=== PATIENT | male | born 1945 | race Caucasian/White ===

== ENCOUNTER 2016-10-06 19:02 | Emergency (ER) | payer MEDICARE ==
[2016-10-06 20:14] VITALS: BP 166/82
--- NOTE | 2016-10-06 20:37 | EDM.PDOC ---
ED HPI GENERAL MEDICAL PROBLEM - General Chief Complaint: ENT Problem Stated Complaint: TOOTHACHE Time Seen by Provider: 10/06/16 20:20 Source of Information: Reports: Patient, Family History Limitations: Reports: No Limitations - History of Present Illness INITIAL COMMENTS - FREE TEXT/NARRATIVE: 71-year-old male with a right mandibular dental pain for the past several days, has an appointment with the dentist on Friday, 3 days from now was told to come in if pain was uncontrolled. No fever or swelling of the jaw. Onset: Gradual - Related Data Allergies Allergy/AdvReac Type Severity Reaction Status Date / Time No Known Allergies Allergy Verified 01/20/14 09:25 Home Meds: Home Meds Furosemide [Furosemide] 1 tab PO DAILY 10/06/16 [History] Labetalol HCl [Labetalol] 2 tab PO TID 10/06/16 [History] Lisinopril [Lisinopril] 1 tab PO BID 10/06/16 [History] Potassium Chloride [Klor-Con] 1 tab PO BID 10/06/16 [History] Pravastatin [Pravachol] 1 tab PO DAILY 10/06/16 [History] Spironolactone [Spironolactone] 1 tab PO BID 10/06/16 [History] cloNIDine [Catapres] 1 tab PO BID 10/06/16 [History] Past Medical History Cardiovascular History: Reports: Hypertension Genitourinary History: Reports: Renal Calculus - Past Surgical History GI Surgical History: Reports: Cholecystectomy Social & Family History - Tobacco Use Smoking Status *Q: Never Smoker ED ROS ENT - Review of Systems Review Of Systems: See Below Constitutional: Denies: Fever HEENT: Reports: Dental Pain Respiratory: Denies: Shortness of Breath GI/Abdominal: Denies: Nausea, Vomiting Skin: Reports: No Symptoms Neurological: Reports: No Symptoms ED EXAM, ENT - Physical Exam Exam: See Below Exam Limited By: No Limitations General Appearance: Alert, No Apparent Distress Mouth/Throat: Other (Right mandibular second molar has a crown, and is tender to percussion. No significant surrounding erythema or swelling) Course - Vital Signs Last Recorded V/S: Last Vital Signs Temp 98.4 F 10/06/16 20:26 Pulse 81 10/06/16 20:26 Resp 16 10/06/16 20:26 BP 166/82 H 10/06/16 20:26 Pulse Ox 96 10/06/16 20:26 - Re-Assessments/Exams Free Text/Narrative Re-Assessment/Exam: 10/06/16 20:36 Patient will be placed on Pen-Vee K 500 4 times daily and given 10 hydrocodone for extra pain control until he sees the dentist on Friday. He can return sooner if worsening or concerns. Departure - Departure Time of Disposition: 20:47 Disposition: Home, Self-Care 01 Condition: Good Clinical Impression: Dental abscess - Discharge Information Instructions: Dental Abscess, [id number] Referrals: Eric Pham MD [Primary Care Provider] - Forms: ED Department Discharge Care Plan Goals: Continue aspirin, and take antibiotic and stronger pain medication as needed and prescribed. See the dentist as scheduled, or return sooner if worsening such as swelling or fever.
== END 2016-10-06 20:47 | disposition home or self-care (01) ==
LOC: JP.ED 19:02
DX: K04.7 Periapical abscess without sinus (principal); I10 Essential (primary) hypertension; Z87.442 Personal history of urinary calculi; Z90.49 Acquired absence of other specified parts of digestive tract; Z79.899 Other long term (current) drug therapy
CPT/HCPCS: 99283